=== PATIENT | male | born 1970 | race Caucasian/White ===

== ENCOUNTER 2016-11-14 08:08 | Day surgery (SDC) | payer BC ==
[~2016-11-14] VITALS: Ht 180.3 cm; Wt 79.5 kg
[~2016-11-14 08:08] MED LIST: BUPIVACAINE LIPOSOME/PF INFIL ONE
[2016-11-14] MEDS ORDERED: LIDOCAINE 1%, 2ML ONE (08:44)
[2016-11-14 08:54] VITALS: BP 150/91
[2016-11-14] MEDS ORDERED: MIDAZOLAM 1 MG/ML, 2ML ONE (09:33)
[2016-11-14] MEDS ORDERED: FENTANYL PF 250 MCG/5ML ONE (09:34)
[2016-11-14 09:40] LABS: ASPARTATE AMINO TRANSFERASE 37 U/L (15-37); BLOOD UREA NITROGEN 20 mg/dL (7-18)
[2016-11-14] MEDS ORDERED: DEXAMETHASONE 4 MG/ML, 1ML ONE (09:41)
[2016-11-14] MEDS ORDERED: ONDANSETRON 2MG/ML, 2ML ONE (09:41)
[2016-11-14] MEDS ORDERED: SUCCINYLCHOLINE 20 MG/ML, 10ML ONE (09:41)
[2016-11-14] MEDS ORDERED: ROCURONIUM 10 MG/ML ONE (09:41)
[2016-11-14] MEDS ORDERED: PROPOFOL 10 MG/ML, 20ML ONE (09:41)
[2016-11-14] MEDS ORDERED: ACETAMINOPHEN 325 MG TABLET PO PRN (10:30)
[2016-11-14] MEDS ORDERED: PROMETHAZINE 25 MG/ML, 1ML IV PRN (10:30)
[2016-11-14] MEDS ORDERED: MEPERIDINE/PF 25MG/0.5ML IVPush PRN (10:30)
[2016-11-14] MEDS ORDERED: OXYcodone 5 MG/5 ML ORAL.SOL UDC PO PRN (10:30)
[2016-11-14] MEDS ORDERED: METOPROLOL 1 MG/ML, 5ML IV PRN (10:30)
[2016-11-14] MEDS ORDERED: FENTANYL PF 100 MCG/2ML IV PRN (10:30)
[2016-11-14] MEDS ORDERED: ALBUTEROL SULFATE 2.5 MG/3 ML NPPB PRN (10:30)
[2016-11-14] MEDS ORDERED: hydrALAzine 20 MG/ML, 1ML IV PRN (10:30)
[2016-11-14] MEDS ORDERED: HYDROmorphone 1 MG/ML, 1ML IV PRN (10:30)
== END 2016-11-14 12:30 ==
LOC: OUT 08:08
PROVIDERS: ATTEND Surgery
DX: K64.8 Other hemorrhoids (principal); K64.4 Residual hemorrhoidal skin tags; Z98.890 Other specified postprocedural states
CPT/HCPCS: 36415; 46260; 80053; 85025; 88304; 93005; C9290; J0330; J1100; J2250; J2405; J2704; J3010

== ENCOUNTER 2017-01-10 04:48 | Inpatient (IN) | payer BC ==
[~2017-01-10] VITALS: Ht 180.3 cm; Wt 86.1 kg
[2017-01-10] MEDS ORDERED: OMNIPAQUE 350 MG/ML, 100ML BOTTLE ONE (05:51)
[2017-01-10] MEDS ORDERED: SODIUM CHLORIDE 0.9% 1,000ML IVBOLUS ONE (06:00)
[2017-01-10] MEDS ORDERED: LORazepam 2 MG/ML, 1ML IVPush ONE ×2 (06:00→08:00)
[2017-01-10] MEDS ORDERED: ONDANSETRON 2MG/ML, 2ML IVPush ONE (06:00)
[2017-01-10] MEDS ORDERED: SODIUM CHLORIDE FLUSH 10ML SYR IVF ONE (06:00)
[2017-01-10] MEDS ORDERED: PIPERACILLIN/TAZO/PMX 3.375GM 50 ML IVPB ONE (06:00)
[2017-01-10] MEDS ORDERED: ONDANSETRON 2MG/ML, 2ML ONE (06:17)
[2017-01-10] MEDS ORDERED: HYDROmorphone 1 MG/ML, 1ML ONE ×2 (06:17→06:32)
[2017-01-10] MEDS ORDERED: PIPERACILLIN/TAZO/PMX 3.375GM 50 ML ONE (06:18)
[2017-01-10] MEDS: HYDROmorphone 1 MG/ML, 1ML IVPush PRN ×2 (06:26→06:42)
[2017-01-10] MEDS ORDERED: LORazepam 2 MG/ML, 1ML ONE (06:33)
[2017-01-10 06:35] LABS: HEMATOCRIT 45.7 % (39.2-51.8); HEMOGLOBIN 15.4 g/dL (13.7-18.0); WHITE BLOOD COUNT 13.8 x10^3/uL (3.4-10)
[2017-01-10 06:45] LABS: BLOOD UREA NITROGEN 14 mg/dL (7-18)
[2017-01-10] MEDS ORDERED: METRONIDAZOLE PMX 500MG/100ML 100 ML IV ONE (07:00)
[2017-01-10] MEDS ORDERED: OXYC1TAB7 PO (07:28)
[2017-01-10] MEDS ORDERED: METRONIDAZOLE PMX 500MG/100ML 100 ML ONE (07:31)
[2017-01-10] MEDS ORDERED: POLYETHYLENE GLYCOL 17 GM PACKET PO ONE (09:30)
[2017-01-10] MEDS ORDERED: LORazepam 2 MG/ML, 1ML IVPush PRN (09:30)
[2017-01-10] MEDS ORDERED: HYDROmorphone 1 MG/ML, 1ML IM PRN (09:30)
[2017-01-10] MEDS ORDERED: OXYcodone/APAP 5/325MG TABLET ONE (11:36)
[2017-01-10] MEDS: OXYcodone/APAP 5/325MG TABLET PO PRN ×3 (11:40→22:06)
[2017-01-10 14:09] VITALS: BP 143/86
[2017-01-10] MEDS ORDERED: POLYETHYLENE GLYCOL 17 GM PACKET ONE (15:10)
[2017-01-10] MEDS: metroNIDAZOLE 500 MG TABLET PO SCH ×2 (15:16→22:06)
[2017-01-10] MEDS: KETOROLAC 30 MG/1 ML IVPush PRN ×2 (15:17→22:05)
[2017-01-10 20:20] VITALS: BP 146/78
[2017-01-11 00:40] VITALS: BP 121/66
[2017-01-11] MEDS: OXYcodone/APAP 5/325MG TABLET PO PRN ×5 (04:32→22:03)
[2017-01-11 04:49] LABS: HEMOGLOBIN 14.8 g/dL (13.7-18.0); WHITE BLOOD COUNT 12.3 x10^3/uL (3.4-10)
[2017-01-11 05:03] LABS: BLOOD UREA NITROGEN 16 mg/dL (7-18)
[2017-01-11 07:30] VITALS: BP 124/82
[2017-01-11] MEDS: KETOROLAC 30 MG/1 ML IVPush PRN ×3 (07:35→22:55)
[2017-01-11] MEDS: metroNIDAZOLE 500 MG TABLET PO SCH ×3 (08:32→22:52)
[2017-01-11 12:09] VITALS: BP 131/80
[2017-01-11] MEDS ORDERED: MAGNESIUM HYDROXIDE 8%, 30ML UDC PO PRN (13:00)
[2017-01-11 20:33] VITALS: BP 154/83
[2017-01-12 02:02] VITALS: BP 111/72
[2017-01-12] MEDS: OXYcodone/APAP 5/325MG TABLET PO PRN ×2 (04:06→08:47)
[2017-01-12 07:35] VITALS: BP 127/85
[2017-01-12] MEDS: metroNIDAZOLE 500 MG TABLET PO SCH (08:18)
[2017-01-12 08:46] LABS: HEMATOCRIT 49.6 % (39.2-51.8); HEMOGLOBIN 16.9 g/dL (13.7-18.0)
[2017-01-12 08:55] LABS: BLOOD UREA NITROGEN 12 mg/dL (7-18)
[2017-01-12] MEDS: KETOROLAC 30 MG/1 ML IVPush PRN (09:08)
[2017-01-12] MEDS ORDERED: METR500T8 PO ×2 (09:52→09:54)
== END 2017-01-12 11:21 | disposition home or self-care (01) | DRG 603 ==
LOC: ED 06:14 → EDIP 07:40 → 4WST 09:05 → DCLOUNGE 01-12 11:00
PROVIDERS: ADMIT Surgery; ATTEND Surgery
DX: L03.317 Cellulitis of buttock (principal); G89.18 Other acute postprocedural pain; K62.89 Other specified diseases of anus and rectum; R33.9 Retention of urine, unspecified
CPT/HCPCS: 36415; 72193; 80048; 82040; 83605; 85025; 87040; 96365; 96375; J1170; J1885; J2405; J2543; Q9967; J2060; J7030

== ENCOUNTER 2019-04-05 08:33 | Outpatient (CLI) | payer BC ==
[~2019-04-05 08:33] MED LIST changes: -BUPIVACAINE LIPOSOME/PF INFIL ONE; +METR-90 PO; +OXYC1TAB7 PO; +PROM25TA10 PO
== END 2019-04-05 23:59 | disposition home or self-care (01) ==
LOC: CFH 08:33
PROVIDERS: ATTEND Internal Medicine Cardiovascular Disease
DX: I08.2 Rheumatic disorders of both aortic and tricuspid valves (principal); I10 Essential (primary) hypertension; Z87.891 Personal history of nicotine dependence
CPT/HCPCS: 93306

== ENCOUNTER 2019-05-24 13:51 | Outpatient (CLI) | payer BC | END 2019-05-24 23:59 | disposition home or self-care (01) | LOC: CARD 13:51 | PROVIDERS: ATTEND Registered Nurse | DX: Z72.0 Tobacco use (principal) | CPT/HCPCS: 94060; 94726; 94729 ==